=== PATIENT | female | born 1965 ===

== ENCOUNTER → 2021-07-21 | Emergency (ER) | payer BC ==
[~2021-07-21] MED LIST: CASIRIVIMAB/IMDEVIMAB 10 ML in SODIUM CHLORIDE 100 ML IVPB ONE
[2021-07-21 12:32] VITALS: PULSE 72; TEMP 98.3; BMI 53.2
[2021-07-21 16:13] VITALS: BP 125/59
== END | disposition home or self-care (01) ==
LOC: JCOVINFU 11:42
DX: U07.1 COVID-19 (principal)
CPT/HCPCS: 71046-TC-FY; 99284-25; Q0240